=== PATIENT | male | born 1990 | race Caucasian/White ===

== ENCOUNTER 2017-01-03 05:13 | Emergency (ER) | payer OTHER ==
[~2017-01-03] VITALS: Ht 188 cm; Wt 85.0 kg
[~2017-01-03 05:13] MED LIST: LISI-360 PO; TRAM50 PO; ULTR50TA PO
--- NOTE | 2017-01-03 05:26 | PD ---
HPI Chief Complaint: psychiatric evaluation Time Seen by Provider: 05:23 Travel History International Travel<30 days: No Contact w/Intl Traveler<30days: No History of Present Illness HPI Patient comes in under police escort under a Damian act for reported suicidal statements. Patient denies any homicidal or suicidal ideations. Patient states he is just feeling depressed. Patient states that he does not normally drink, but did have a drink tonight. Patient denies any medical concerns at this time. Denies any chest pain, shortness breath, nausea, vomiting, abdominal pain, or fevers. Patient denies anything making his symptoms better or worse. Patient does have an external defibrillator and denies it firing. PFSH Past Medical History Cardiomyopathy: Yes Diminished Hearing: No Hypertension: Yes Social History Alcohol Use: No Tobacco Use: No Substance Use: No Allergies-Medications (Allergen,Severity, Reaction): Coded Allergies: No Known Allergies (Unverified , 01/03/17) Reported Meds & Prescriptions Reported Meds & Active Scripts Active Reported Simvastatin 40 Mg Tab 40 Mg PO HS Furosemide 20 Mg Tab 10 Mg PO DAILY Carvedilol 6.25 Mg Tab 6.25 Mg PO BID Lisinopril 10 mg (Lisinopril) 10 Mg Tab 10 Mg PO DAILY Review of Systems Except as stated in HPI: all other systems reviewed are Neg Physical Exam Narrative GENERAL: Well-developed, well nourished, in no acute distress, and non-ill appearing. SKIN: Focused skin assessment warm and dry. HEAD: Atraumatic. Normocephalic. EYES: Pupils equal and round. EOMI. No scleral icterus. No injection or drainage. ENT: No nasal bleeding or discharge. Mucous membranes pink and moist. NECK: Trachea midline. Supple. No nuclear rigidity. CARDIOVASCULAR: Regular rate and rhythm. No murmur appreciated. RESPIRATORY: No accessory muscle use. No respiratory distress. Clear to auscultation. Breath sounds equal bilaterally. MUSCULOSKELETAL: No obvious deformities. No clubbing. No cyanosis. No edema. Full range of motion. NEUROLOGICAL: Awake and alert. No obvious cranial nerve deficits. Motor grossly within normal limits. Normal speech. PSYCHIATRIC: Appropriate mood and affect; insight and judgment normal. Data Data Last Documented VS Vital Signs Date Time Temp Pulse Resp B/P Pulse Ox O2 Delivery O2 Flow Rate FiO2 01/03/17 05:31 20 01/03/17 05:31 98.4 82 129/91 100 Room Air Orders Complete Blood Count With Diff (01/03/17 05:22) Comprehensive Metabolic Panel (01/03/17 05:22) Psych Screen (01/03/17 05:22) Drug Screen, Random Urine (01/03/17 05:22) Alcohol (Ethanol) (01/03/17 05:22) Salicylates (Aspirin) (01/03/17 05:22) Tylenol (Acetaminophen) (01/03/17 05:22) Calcium Carbonate Chew (Tums Chew) (01/03/17 05:45) Acetaminophen (Tylenol) (01/03/17 06:00) Labs Laboratory Tests Test 01/03/17 02:55 White Blood Count 13.1 TH/MM3 Red Blood Count 4.80 MIL/MM3 Hemoglobin 14.4 GM/DL Hematocrit 41.4 % Mean Corpuscular Volume 86.1 FL Mean Corpuscular Hemoglobin 30.0 PG Mean Corpuscular Hemoglobin 34.8 % Concent Red Cell Distribution Width 14.2 % Platelet Count 151 TH/MM3 Mean Platelet Volume 10.4 FL Neutrophils (%) (Auto) 69.9 % Lymphocytes (%) (Auto) 23.7 % Monocytes (%) (Auto) 5.5 % Eosinophils (%) (Auto) 0.4 % Basophils (%) (Auto) 0.5 % Neutrophils # (Auto) 9.2 TH/MM3 Lymphocytes # (Auto) 3.1 TH/MM3 Monocytes # (Auto) 0.7 TH/MM3 Eosinophils # (Auto) 0.0 TH/MM3 Basophils # (Auto) 0.1 TH/MM3 CBC Comment DIFF FINAL Differential Comment Sodium Level 138 MEQ/L Potassium Level 4.1 MEQ/L Chloride Level 107 MEQ/L Carbon Dioxide Level 17.6 MEQ/L Anion Gap 13 MEQ/L Blood Urea Nitrogen 29 MG/DL Creatinine 2.07 MG/DL Estimat Glomerular Filtration 39 ML/MIN Rate Random Glucose 90 MG/DL Calcium Level 9.5 MG/DL Total Bilirubin 0.5 MG/DL Aspartate Amino Transf 23 U/L (AST/SGOT) Alanine Aminotransferase 22 U/L (ALT/SGPT) Alkaline Phosphatase 56 U/L Total Protein 8.9 GM/DL Albumin 4.5 GM/DL Salicylates Level LESS THAN 1.7 MG/DL Acetaminophen Level LESS THAN 2.0 MCG/ML Ethyl Alcohol Level 52 MG/DL MDM Medical Decision Making Medical Screen Exam Complete: Yes Emergency Medical Condition: Yes Differential Diagnosis Homicidal, suicidal, depression, alcohol intoxication, other Narrative Course Patient was seen and examined. Labs were obtained and reviewed with the exception of the urine drug screen that has not been collected yet. Patient denies any history of renal insufficiency. I discussed this patient with , feels patient can follow up with his elevated creatinine as an outpatient. I discussed this with the patient who verbalizes understanding. All questions were answered. Patient medically cleared for further treatment and evaluation by psych. Final disposition per psych. Diagnosis Primary Impression: Renal insufficiency Additional Impression: Medical clearance for psychiatric admission Additional Instructions: Follow-up with your primary care doctor, cranial, and/or contour sander regarding your renal insufficiency that was noted here today. Condition: Stable Ismael Drake Jan 03, 2017 05:26
[2017-01-03 05:31] VITALS: BP 129/91; PULSE 82; RESP 20; TEMP 98.4; O2SAT 100
[2017-01-03 05:39] LABS: AUTOMATED NEUTROPHIL # 9.2 TH/MM3 (1.8-7.7); BASOPHIL # 0.1 TH/MM3 (0-0.2); BASOPHIL % 0.5 % (0.0-2.0); EOSINOPHIL % 0.4 % (0.0-4.0); HEMATOCRIT 41.4 % (39.0-51.0); HEMO FLAGS DIFF FINAL; LYMPH % 23.7 % (9.0-44.0); LYMPHOCYTE # 3.1 TH/MM3 (1.0-4.8); MEAN CELL VOLUME 86.1 FL (80.0-100.0); MEAN CORPUSCULAR HGB CONC 34.8 % (32.0-36.0); MONO % 5.5 % (0.0-8.0); NEUT % 69.9 % (16.0-70.0); PLATELET COUNT 151 TH/MM3 (150-450); RED CELL DISTRIBUTION WIDTH 14.2 % (11.6-17.2); WHITE BLOOD COUNT 13.1 TH/MM3 (4.0-11.0)
[2017-01-03] MEDS ORDERED: CALCIUM CARBONATE 500 MG CHEWABLE TAB CHEW ONE (05:45)
[2017-01-03] MEDS ORDERED: SIMV40TA PO (05:58)
[2017-01-03] MEDS ORDERED: CARV6.252 PO (05:58)
[2017-01-03] MEDS ORDERED: FURO20TA PO (05:58)
[2017-01-03] MEDS ORDERED: ACETAMINOPHEN 500 MG CPLT PO ONE (06:00)
[2017-01-03 06:01] LABS: ALT (GPT) 22 U/L (12-78); ANION GAP 13 MEQ/L (5-15); AST (GOT) 23 U/L (15-37); BICARBONATE 17.6 MEQ/L (21.0-32.0); BLOOD UREA NITROGEN 29 MG/DL (7-18); CHLORIDE 107 MEQ/L (98-107); GLOMERULAR FILTRATION RATE 39 ML/MIN (>89); SODIUM (NA) 138 MEQ/L (136-145)
[2017-01-03 06:02] LABS: ALKALINE PHOSPHATASE 56 U/L (45-117); TOTAL BILIRUBIN ADULT 0.5 MG/DL (0.2-1.0)
[2017-01-03 06:14] LABS: POTASSIUM 4.1 MEQ/L (3.5-5.1)
[2017-01-03 06:38] LABS: ACETAMINOPHEN LESS THAN 2.0 MCG/ML (10.0-30.0)
[2017-01-03] MEDS ORDERED: FAMOTIDINE 20 MG TAB PO ONE (07:00)
[2017-01-03 07:36] LABS: AMPHETAMINE, URINE NEG (NEG); BARBITURATES, URINE NEG (NEG); COCAINE, URINE NEG (NEG)
[2017-01-03 08:31] VITALS: BP 158/88; PULSE 81; RESP 16; O2SAT 100
--- NOTE | 2017-01-03 12:29 | PD.PSY.CON ---
Provisional Diagnosis Admission Date Blakeslee I. Alcohol induced mood disorder, alcohol use disorder, history of depression Blakeslee II. Deferred Blakeslee III. 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 In his initial ER assessment Patient denies any homicidal or suicidal ideations. Patient states he is just feeling depressed. Patient states that he does not normally drink, but did have a drink tonight. Patient denies any medical concerns at this time. Denies any chest pain, shortness breath, nausea, vomiting, abdominal pain, or fevers. Patient denies anything making his symptoms better or worse. Patient does have an external defibrillator and denies it firing. Today on psychiatric evaluation patient reports good mood, he says that he has been chronically depressed due to his underlying medical problems, he also says that he has recently taken a medical leave in his job due to his medical problems, and he has not be producing money and has been facing financial issues. His mother yesterday became upset with him because he pawned a computer the was given to him by his father. His mother , contacted by phone, , stated that in her opinion the was of very poor judgment decision. She thought that he was maybe psychotic that was the reason she Damian acted him. But, patient says that he just needed the money, and he denies depressive symptoms at this moment, denies perceptual disturbances , denies suicidal and homicidal ideation. She also clarifies that his mother was drunk at the moment of initiating the Damian act. Patient reports occasional use of alcohol, denies the use of illicit drugs. Review of Systems Constitutional: DENIES: Diaphoretic episodes, Fatigue, Fever, Weight gain, Weight loss, Chills, Dizziness, Change in appetite, Night Sweats Endocrine: DENIES: Heat/cold intolerance, Polydipsia, Polyuria, Polyphagia Eyes: DENIES: Blurred vision, Diplopia, Eye inflammation, Eye pain, Vision loss , Photosensitivity, Double Vision Ears, nose, mouth, throat: DENIES: Tinnitus, Hearing loss, Vertigo, Nasal discharge, Oral lesions, Throat pain, Hoarseness, Ear Pain, Running Nose, Epistaxis, Sinus Pain, Toothache, Odynophagia Respiratory: DENIES: Apneas, Cough, Snoring, Wheezing, Hemoptysis, Sputum production, Shortness of breath Cardiovascular: DENIES: Chest pain, Palpitations, Syncope, Dyspnea on Exertion , PND, Lower Extremity Edema, Orthopnea, Claudication Musculoskeletal: DENIES: Joint pain, Muscle aches, Stiffness, Joint Swelling, Back pain, Neck pain Integumentary: DENIES: Abnormal pigmentation, Nail changes, Pruritus, Rash Hematologic/lymphatic: DENIES: Bruising, Lymphadenopathy Immunologic/allergic: DENIES: Eczema, Urticaria Neurologic: DENIES: Abnormal gait, Headache, Localized weakness, Paresthesias, Seizures, Speech Problems, Tremor, Poor Balance Psychiatric: DENIES: Anxiety, Confusion, Mood changes, Depression, Hallucinations, Agitation, Suicidal Ideation, Homicidal Ideation, Delusions Past Family Social History Coded Allergies: No Known Allergies (Unverified , 01/03/17) Reported Medications Simvastatin 40 Mg Tab40 Mg PO HS #30 TAB Ref 0 01/03/17 Furosemide 20 Mg Tab10 Mg PO DAILY #60 TAB Ref 0 01/03/17 Carvedilol 6.25 Mg Tab6.25 Mg PO BID #60 TAB Ref 0 01/03/17 Lisinopril 10 mg 10 Mg Tab10 Mg PO DAILY 09/21/13 Discontinued Reported Medications Tramadol HCl (Ultram)50 Mg Tab50 Mg PO Q4H PRN 09/21/13 Discontinued Scripts Tramadol Hcl (Ultram)50 Mg Tab1 Tab PO Q6 PRN (PAIN) #30 FOR PAIN Prov:Yo Jackson MD 09/21/13 Family History He denies family psychiatric history Social History Patient was born and raised in [place], ,lives in [place] with parents, 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 2) Verbal communication Physical Exam Vital Signs Vital Signs Date Time Temp Pulse Resp B/P Pulse Ox O2 Delivery O2 Flow Rate FiO2 01/03/17 08:31 81 16 158/88 100 Room Air 01/03/17 05:31 98.4 Lab Results Labs Laboratory Tests Test 01/03/17 02:55 White Blood Count 13.1 TH/MM3 Red Blood Count 4.80 MIL/MM3 Hemoglobin 14.4 GM/DL Hematocrit 41.4 % Mean Corpuscular Volume 86.1 FL Mean Corpuscular Hemoglobin 30.0 PG Mean Corpuscular Hemoglobin 34.8 % Concent Red Cell Distribution Width 14.2 % Platelet Count 151 TH/MM3 Mean Platelet Volume 10.4 FL Neutrophils (%) (Auto) 69.9 % Lymphocytes (%) (Auto) 23.7 % Monocytes (%) (Auto) 5.5 % Eosinophils (%) (Auto) 0.4 % Basophils (%) (Auto) 0.5 % Neutrophils # (Auto) 9.2 TH/MM3 Lymphocytes # (Auto) 3.1 TH/MM3 Monocytes # (Auto) 0.7 TH/MM3 Eosinophils # (Auto) 0.0 TH/MM3 Basophils # (Auto) 0.1 TH/MM3 CBC Comment DIFF FINAL Differential Comment Sodium Level 138 MEQ/L Potassium Level 4.1 MEQ/L Chloride Level 107 MEQ/L Carbon Dioxide Level 17.6 MEQ/L Anion Gap 13 MEQ/L Blood Urea Nitrogen 29 MG/DL Creatinine 2.07 MG/DL Estimat Glomerular Filtration 39 ML/MIN Rate Random Glucose 90 MG/DL Calcium Level 9.5 MG/DL Total Bilirubin 0.5 MG/DL Aspartate Amino Transf 23 U/L (AST/SGOT) Alanine Aminotransferase 22 U/L (ALT/SGPT) Alkaline Phosphatase 56 U/L Total Protein 8.9 GM/DL Albumin 4.5 GM/DL Salicylates Level LESS THAN 1.7 MG/DL Acetaminophen Level LESS THAN 2.0 MCG/ML Ethyl Alcohol Level 52 MG/DL Mental Status Examination Speech: Unremarkable Orientation: x3 Memory: Unremarkable Thought Process: Logical Thought Content: Unremarkable Hallucination Type: None Suicidal Ideation: No Previous Suicide Attempts: No Homicidal Ideation: No Previous Homicide Attempts: No Insight: Good Judgment: WNL Affect: Good Mood: Appropriate Motor Activity: Normal gait Assessment & Plan Problem List: (1) Alcohol abuse with alcohol-induced mood disorder Assessment & Plan: At the moment of this evaluation the patient does not present any evidence of acute depression, anxiety, gómez or psychosis. She denies suicidal or homicidal ideation, patient denies visual and auditory hallucinations. Recent suicidal statement to his mother is to be related with acute alcohol intoxication. Patient does not meet criteria for psychiatric admission at this moment. Damian act will be lifted. ICD Code: F10.14 Assessment & Plan Estimated LOS: Esteban Mcgarry MD Jan 03, 2017 12:29
== END 2017-01-03 19:50 | disposition home or self-care (01) ==
LOC: NEPD 05:13
DX: N28.9 Disorder of kidney and ureter, unspecified (principal); I42.9 Cardiomyopathy, unspecified; I10 Essential (primary) hypertension; Z79.899 Other long term (current) drug therapy
CPT/HCPCS: 80053; 80307; 85025; 99283

== ENCOUNTER 2017-02-03 12:28 | Day surgery (SDC) | payer SELFPAY ==
[~2017-02-03] VITALS: Ht 188 cm; Wt 77.5 kg
[~2017-02-03 12:28] MED LIST changes: +CARV6.252 PO; +FURO20TA PO; +SIMV40TA PO; -TRAM50 PO; -ULTR50TA PO
[2017-02-03] MEDS ORDERED: PROPOFOL 200 MG/20 ML AMP OTHER ONE (12:29)
[2017-02-03 14:28] LABS: BASOPHIL % 0.6 % (0.0-2.0); EOSINOPHIL # 0.1 TH/MM3 (0-0.4); EOSINOPHIL % 1.4 % (0.0-4.0); HEMATOCRIT 38.8 % (39.0-51.0); HEMO FLAGS DIFF FINAL; LYMPHOCYTE # 2.3 TH/MM3 (1.0-4.8); MEAN CELL VOLUME 88.7 FL (80.0-100.0); MEAN CORPUSCULAR HEMOGLOBIN 30.7 PG (27.0-34.0); MEAN CORPUSCULAR HGB CONC 34.7 % (32.0-36.0); MONO % 7.8 % (0.0-8.0); NEUT % 61.2 % (16.0-70.0); PLATELET COUNT 145 TH/MM3 (150-450); RED BLOOD COUNT 4.38 MIL/MM3 (4.50-5.90); RED CELL DISTRIBUTION WIDTH 14.1 % (11.6-17.2); WHITE BLOOD COUNT 8.1 TH/MM3 (4.0-11.0)
[2017-02-03] MEDS ORDERED: SODIUM CHLORID 0.9% 500 ML IV PRN (14:30)
[2017-02-03] MEDS ORDERED: POVIDONE IODINE 5% (ANTISEPSIS KIT) 4 APPLICATIONS EACH NARE SCH (14:30)
[2017-02-03] MEDS ORDERED: NS 1000 ML IV SCH (14:30)
[2017-02-03] MEDS ORDERED: MUPIROCIN 2% OINT 1 APPLIC/GM SYR NASAL SCH (14:30)
[2017-02-03] MEDS ORDERED: CHLORHEXIDINE GLUCONATE 2 % 1 PACK (2 CLOTHS) TOPICAL SCH (14:30)
[2017-02-03] MEDS ORDERED: VANCOMYCIN 1000 MG/NS 250 ML IV SCH ×2 (14:30)
[2017-02-03] MEDS ORDERED: LACTATED RINGER'S 1000 ML IV PRN (14:30)
[2017-02-03] MEDS ORDERED: METOPROLOL TARTRATE 25 MG TAB PO PRN (14:30)
[2017-02-03] MEDS ORDERED: INSULIN HUMAN REGULAR 1,000 UNITS/10 ML VIAL SQ PRN (14:30)
[2017-02-03] MEDS ORDERED: POVIDONE IODINE 5% (ANTISEPSIS KIT) 4 APPLICATIONS EACH NARE PRN (14:30)
[2017-02-03] MEDS ORDERED: CHLORHEXIDINE GLUCONATE 2 % 1 PACK (2 CLOTHS) TOPICAL PRN (14:30)
[2017-02-03] MEDS ORDERED: ceFAZolin 2 GM PREMIX 50 ML IV SCH (14:30)
[2017-02-03] MEDS ORDERED: LORazepam 1 MG TAB SL SCH (14:30)
[2017-02-03 14:42] LABS: PROTHROMBIN TIME - PATIENT 10.8 SEC (9.8-11.6)
[2017-02-03 14:54] LABS: BICARBONATE 26.8 MEQ/L (21.0-32.0); POTASSIUM 4.3 MEQ/L (3.5-5.1)
[2017-02-03 15:22] VITALS: BP 141/85; PULSE 62; RESP 18; TEMP 98.1; O2SAT 99
[2017-02-03] MEDS ORDERED: LIDOCAINE HCL 2% 50 ML VIAL ONE (18:06)
[2017-02-03] MEDS ORDERED: VANCOMYCIN 500 MG VIAL ONE (18:07)
[2017-02-03] MEDS ORDERED: STERILE WATER FOR INJECTION 10 ML VIAL ONE (18:08)
[2017-02-03] MEDS ORDERED: MIDAZOLAM HCL 2 MG/2 ML VIAL ONE (18:11)
[2017-02-03] MEDS ORDERED: KETAMINE HCL 500 MG/5 ML VIAL ONE (18:11)
--- NOTE | 2017-02-03 19:01 | PD.CARD ---
SINGLE CHAMBER DEFIB IMPLANT PROCEDURE DATE: Feb 03, 2017 NYHA Classification: Class II (Mild) Prevention: Primary Single Chamber Defib Implant PROCEDURE: Single chamber defibrillator implantation and device testing. INDICATIONS: Mr. Egan is a 26 -year-old male with hx of congestive heart failure, ejection fraction 30%, who undergo defibrillator implantation for sudden primary prevention.patient was on optimal medical management for the last 6 months. The risks, the nature and the benefit of the procedure are clearly stated to him . Risks include pneumothorax, cardiac perforation, stroke and even . He understood and agreed to proceed. PROCEDURE: After written, informed consent was obtained, the patient was brought to the EP Lab where he was prepped and draped in the sterile fashion. Conscious sedation was initiated and maintained throughout the procedure by anesthesiologist. Once sedation was verified, the left infraclavicular area was anesthetized with 2% Xylocaine. Using modified Seldinger technique, the left subclavian vein was cannulated on one occasion and one guide wire was advanced. Then, using #11 blade scalpel, a 3-cm incision was made two fingerbreadths below left clavicle. This incision was then taken down to the deep fascial layer using Bovie cautery and blunt dissection. Into the inferomedial direction, a device pocket was dissected, then the wire was dissected into the pocket. A 2-0 Vicryl suture was placed around the wires to prevent bleeding. At this point, over the wire, the 8- Gabonese dilator and introducer was advanced. As dilator and wire were removed, an active fixation right ventricular pacing, sensing and defibrillatory lead was advanced. After adequate pacing and sensing thresholds were obtained, the lead was secured in the pocket with #2 Ethibond suture. At that point, the pocket was copiously irrigated with antibiotic solution. The leads were connected to the generator and placed into the pocket. I did proceed with wound closure. The deep fascial layer was approximated with 2-0 Vicryl suture in a continuous fashion. The subcutaneous layer was approximated with 2-0 Vicryl suture in a continuous fashion. The subcuticular layer was approximated with 2-0 Vicryl suture in a continuous fashion. Dermabond adhesive was applied to the wound, followed by a sterile pressure dressing. There was no complication. The patient tolerated procedure. Blood loss minimal. 1. Implanted Hardware: The implanted defibrillator generator is a [employer] model number 552572, serial number [id number]. The right ventricular pacing, sensing and defibrillatory lead is a [employer] model number 438657, serial number [id number]. 2. Thresholds: The right ventricular pacing threshold in the bipolar mode was 0.8volts at 0.4 milliseconds, lead impedance 680 ohms and R-wave at 13.8 mV. P wave 2.9mV. 3. Settings: The device set in VVI40 defibrillatory portion for two zones, one zone for ventricular tachycardia between 180 and 250 beats per minute. Initial therapy consists of one burst of ATP, one ramp, 81%, 10 pulse, 10 millisecond decremental, followed by 20, then 30 and all subsequent shocks at 40 joules defibrillatory shock, the second zone for ventricular fibrillation above 250 beats per minute, first therapy at 30 and all subsequent shocks at 40 joules defibrillatory shock. CONCLUSIONS: Successful defibrillator implantation. COMMENT AND RECOMMENDATIONS: The patient will be transferred to the telemetry unit, will be observed and when stable can be discharged home. Awilda Marion MD Feb 03, 2017 19:01
[2017-02-03] MEDS ORDERED: ONDANSETRON HCL 4 MG/2 ML VIAL IV PRN (19:15)
[2017-02-03] MEDS ORDERED: MAGNESIUM HYDROXIDE SUSP 30 ML CUP PO PRN (19:15)
[2017-02-03] MEDS ORDERED: TEMAZEPAM 15 MG CAP PO PRN (19:15)
[2017-02-03] MEDS ORDERED: ACETAMINOPHEN/CODEINE 300 MG/30 MG TAB PO PRN ×2 (19:15)
--- NOTE | 2017-02-03 19:38 | CATHPROC ---
[employer] HIS Report Study Information Study Number Admission Scheduled Start Study Start [id number] Feb 03 2017 12:28PM 02/03/2017 Feb 03 2017 5:46PM [place] [facility] Cardiac Pacer/ICD Admit Source Facility Department Other [facility] - Associate Financial Representative Physician and Clinical Staff Initial Awilda Jensen Leather Dresser Alana Melchor,SHIP RIGGER TECH2 Other Josefina Lynn,RN Other Anesthesia, SANDSTONE SPLITTER Recorder Ruth Denson,BSRN Recorder Josefina Lynn,ALAYNA Scrub Katina Perez RCIS Procedures Performed Procedure Lead Insertion Equipment Time Import/Export Administrator Description Size Mfg Part Number Used/Scraped DEFIBRILLATOR, IMPERIA 7 VR-T 18:44 BIOTRONIK [id number] Used DX MRI 18:34 BIOTRONIK LEAD, PLEXA PRO-MRI DF 65/15 [id number] Used DERMABOND, ADHESIVE SKIN [id number] 17:49 CORDIS/PACER * Used GLUE MINI *[id number] TP-1103 17:49 MEDLINE IND[employer] SUTURE, STRIP PLUS 1/2" * Used *[id number] 17:49 MEDLINE PACER STALEY, LIMB * 2530 *[id number] Used [id number] 17:49 MEDLINE PACER PACK, PACER CUSTOM * Used *[id number] 18:27 [facility] [employer] PACER SAFE SHEATH, FR8, 13CM FR 8 [id number] Used 18:20 Needle Sponge Count 2 22 Used 18:20 Needle Sponge Count 2 2 Used 18:20 Needle Sponge Count 20 200 Used SUTURE, 0 ETHIBOND [CT1] (CX21D), 8pk SUTURE, 2-0 VICRYL [CT1] ([id number]) SUTURE, 2-0 VICRYL [CT1] ([id number]) [id number] 17:49 [place] [facility],WARM AIR CCL * Used *[id number] [facility] PAD, ELECTROSURGICAL 17:49 * [id number] *[id number] Used SURGICAL GROUNDING ORANGE [id number] 17:49 [employer] LAURY. ELECTRODE, PRO-PADZ BIPHASIC * Used *02059 Equipment Model, Serial, Lot Number and Expiration Data Description Model Number Serial Number Lot Number Expiration Date DEFIBRILLATOR, IMPERIA 7 VR-T [id number] 08-16-2017 DX MRI LEAD, PLEXA PRO-MRI DF 65/15 [id number] 05-18-2017 History: Current Medications Medication Dosage/Unit Route Frequency Last Date/Time Taken Beta Linus Statins (any) History: Allergies Allergy Reaction NKDA History: Risk Factors Family History of Hypertension Dyslipidemia Previous IL Premature CAD Yes Yes No No Prior Valve Prior PCI Prior CABG Surgery No No No Cerebrovascular Peripheral Artery Chronic Lung On Dialysis Diabetes Disease Disease Disease No No No No No History: CV Disease Selection Items Cardiomyopathy History: Other Disease Selection Items HTN Labs Hgb (g/dl) Hct (%) RBC (MIL/MM3) WBC (l/cumm) Platelets (thousands) 11.60-17.00 35.00-51.00 4.00-5.90 4.00-11.00 150.00-450.00 13.5 38.8 4.3 8.1 145 Glucose (mg/dl) BUN (mg/dl) Creatinine (mg/dl) BUN:Creatinine (1:x) 74.00-106.00 7.00-18.00 0.50-1.30 10.00-20.00 44 33 1.8 18.3 Na (meq/l) K (meq/l) Cl (meq/l) CO2 (mmol/L) Ca (mg/dl) 136.00-145.00 3.50-5.10 98.00-107.00 21.00-32.00 8.50-10.10 138 4.3 106 26.8 9 INR (PTT:PT) 0.90-1.10 1 Medication Medication Total Dose (Bolus/Oral) Medication Total Dosage/Unit 2% XYLOCAINE 50 mL Medications (Bolus/Oral) Medication Time Given Dosage/Unit Administered By Reason 2% XYLOCAINE 02/03/2017 6:28:16 PM 50 mL Awilda Marion For pain 50 mL 2% XYLOCAINE given in lab by Awilda Marion via Subcutaneous. Ordered by Awilda Marion. Reason: For pain. left upper chest Medication (Drip) Medication Time Given Dosage/Unit Concentration/Unit Diluent (ml) Solution ANCEF 02/03/2017 6:00:00 PM 2 g 2 g ANCEF given in lab by Anesthesia, SANDSTONE SPLITTER in Right Antecubital via Peripheral IV. Ordered by Awilda Marion. Reason: As per physicians verbal order. IV Solutions 02/03/2017 6:10:00 PM 0 mL (IV) NaCl .9 IV Solutions given in lab by Ruth Denson BSRN in Right Antecubital via Peripheral IV. Pump/Drip Flow = 50 ml/hr using NaCl .9. Ordered by Awilda Marion. Reason: As per physicians verbal order. IV Solutions 02/03/2017 6:12:00 PM 0 mL (IV) NaCl .9 IV Solutions given in lab by Ruth Denson BSRN in Left Forearm via Peripheral IV. Pump/Drip Flow = 50 ml/hr using NaCl .9. Ordered by Awilda Marion. VANCOMYCIN DRIP 02/03/2017 5:54:00 PM 1 g 1 g VANCOMYCIN DRIP given in lab by uRth Denson BSRN in Right Antecubital via Peripheral IV. Or dered by Awilda Marion. Reason: As per physicians verbal order. Initial Case Assessment Cardiovascular HR NIBP Chest Pain 63 140/67 0 Edema Present Skin color Skin None Normal Warm Dry Neurological State Oriented to time-place- Alert Moves all extremities person Respiration - General Respiration Rate SpO2 (%) (B/min) 16 100 Final Case Assessment Cardiovascular HR Rhythm NIBP Chest Pain 75 sr 101/50 0 Edema Present Skin color Skin None Normal Warm Dry Circulatory - Right Pulses Radial 2 Scale (0,1,2,3,4,d) Circulatory - Left Pulses Radial 2 Scale (0,1,2,3,4,d) Circulatory - Lower Extremities Color Lower Right Color Lower Left Normal Normal Neurological State Lethargic Moves all extremities Respiration - General Respiration Rate SpO2 (%) O2 (lpm) (B/min) 16 99 4 Chronological Log Time Study Chronological Log 17:53:00 Patient arrived via Bed. 1 g VANCOMYCIN DRIP given in lab by Ruth Denson BSRN in Right Antecubital via Peripheral IV. Ordered by Sanam, 17:54:00 Awilda. Reason: As per physicians verbal order. 17:57:14 Patient Name, D.O.B, / Armband Verified By R.N. 18:00:00 Anesthesia at bedside. Assumes care of patient. Glenda SANDSTONE SPLITTER 2 g ANCEF given in lab by Anesthesia, SANDSTONE SPLITTER in Right Antecubital via Peripheral IV. Ordered by Awilda Gibbons. Reason: 18:00:00 As per physicians verbal order. IV Solutions given in lab by Ruth Denson BSRN in Right Antecubital via Peripheral IV. Pum p/Drip Flow = 50 ml/hr 18:10:00 using NaCl .9. Ordered by Awilda Marion. Reason: As per physicians verbal order. 18:11:01 Consent signed by the physician and the patient and verified by the Associate Financial Representative staff. 18:11:02 Pre-op and post- op instructions given; patient acknowledges understanding of instructions. 18:11:04 Verbal Stimulation=2 Physical Stimulation=2 Airway=2 Respiration=2 TOTAL=10. (0=absent, 1=l imited, 2=present) 18:11:32 Presedation assessment performed by Associate Financial Representative RN. 18:11:35 Immediate Presedation assesment performed by physician. 18:11:37 Patient has been NPO for More than 6Hrs. 18:11:39 Skin Breakdown- none 18:11:46 Patient Warmer Placed on the Table. 18:11:49 Disposable Defibrillator Pads Placed On Patient. 18:11:51 Sasha Prominences Protected 18:11:53 A # 20 IV was noted in the Antecubital (right). Grade = ~GRADE~ IV Solutions given in lab by Ruth Denson BSRN in Left Forearm via Peripheral IV. Pump/Dri p Flow = 50 ml/hr using 18:12:00 NaCl .9. Ordered by Awilda Marion. 18:12:04 A # 20 IV was noted in the Forearm (left). Grade = ~GRADE~ 18:12:17 History and physical on the chart or being dictated. Assessment: Initial Case, HR=63 BPM, UXEE=151/67 mmhg, Chest Pain=0, Edema=None, Color=Normal, Skin = Warm, Dry 18:12:19 Neurological: State=Alert, Ox3, PORTER Respiration: Resp=16 B/min, FmF3=723 % 18:12:29 Table restraints applied according to hospital policy 18:12:32 Left Upper Chest Prepped Times Two. 18:13:48 Bovie ground pad applied to: right hip 18:13:55 2% CHLORHEXIDINE GLUCONATE WASH AND NASAL SWIPE DONE PRIOR TO PROCEDURE. 18:13:58 Pre-procedure assessment data was performed with the previous procedure. First Sponge And Instrument Count Done by Alana Melchor, SHIP RIGGER TECH2. 18:19:26 Hypo's: 2, Sponges: 20, Bovie/scratch: 2 Sutures: 10, Blades: 1, Instruments: 26, Syveck Patches: 0 18:21:56 Reference ECG taken 18:22:01 Immediate Presedation assesment performed by physician. 18:23:43 MD paged Time Out. Correct patient, procedure, procedure equipment, site and side verified with physicia n present. Time 18:27:40 concurred by MD, individual staff and SANDSTONE SPLITTER. Time Out #2 - Consents verified, patient in correct position, all results are labled and displa yed, safety precautions 18:28:12 taken, antibiotics administered. Time out concurred by MD, individual staff and SANDSTONE SPLITTER in procedu re 18:28:14 Case Start 50 mL 2% XYLOCAINE given in lab by Awilda Marion via Subcutaneous. Ordered by Awilda Marion. Re ason: For pain. 18:28:16 left upper chest 18:31:14 Vascular access was obtained in the Subclav. Vein (Lft. 18:31:26 Surgical Incision Made. 18:31:30 A pocket was created at the Lt. upper chest. 18:36:18 A LEAD, PLEXA PRO-MRI DF 65/15 was inserted and positioned in the RV. 18:36:51 Lead placement verified under fluoroscopy 18:36:54 The RV lead impedance and threshold being tested. 18:42:06 Pocket flushed with antibiotic solution 18:43:35 A DEFIBRILLATOR, IMPERIA 7 VR-T DX MRI was connected and placed in the pocket. Second Sponge And Instrument Count Done by Katina Perez RCIS. 18:50:49 Hypo's: 2, Sponges: 20, Bovie/scratch: 2 Sutures: 10, Blades: 1, Instruments: ~INSTRU~, Syveck Patches: ~SYVECK PATCH~ 18:58:29 The pocket was closed. Final Sponge And Instrument Count Done by Alana Melchor, SHIP RIGGER TECH2. 18:58:39 Hypo's: 2, Sponges: 20, Bovie/scratch: 2 Sutures: 10, Blades: 1, Instruments: 26, Syveck Patches: 0 18:59:05 Implant Procedure was performed. 18:59:10 A ICD Implant . (Single) 18:59:19 Case End 18:59:36 Steri-strips and a sterile dressing applied to site. 18:59:59 No case complications noted. 19:00:00 Cine recording checked. 19:00:06 Defibrillator and ground pads removed. Skin intact. Assessment: Final Case, HR=75 BPM, Rhythm=sr, KXDE=183/50 mmhg, Chest Pain=0, Edema=None, [place] r=Normal, Skin = Warm, Dry Right Pulses: Radial=2 Left Pulses: Radial=2 19:00:52 Lower Right Extremities: Color=Normal Lower Left Extremities: Color=Normal Neurological: State=Lethargic, PORTER Respiration: Resp=16 B/min, SpO2=99 %, O2=4 lpm 19:02:36 CICU called. Spoke to Ella 19:02:41 Bedside Report will be given. 19:10:36 Patient moved to stretcher 19:15:45 A sling was placed on the affected arm. 19:18:30 Implantable Device card placed in patient's chart. End Study - Contrast Media Used In Study Contrast Total Opened (mL) Total Used (mL) Total Wasted (mL) Unspecified 0 0 0 End Study - Maximum Contrast Load Max Contrast Load (mL) 246.2 End Study - Radiation Exposure Fluoro Time (minutes) 2.2 End Study - Patient Disposition Complications Transferred To Interventional Outcome No Telemetry Bed successful
[2017-02-03] MEDS ORDERED: MORPHINE SULFATE 4 MG/ML INJ IV ONE ×2 (19:45→21:00)
[2017-02-03] MEDS ORDERED: PILL SPLITTER OTHER PRN (19:45)
[2017-02-03] MEDS: CARVEDILOL 6.25 MG TAB PO SCH (19:51)
--- NOTE | 2017-02-03 19:56 | RADRPT ---
EXAM DATE/TIME: 02/03/2017 19:29 [place] COMPARISON: No previous studies available for comparison. INDICATIONS : S/P ICD placement. MEDICAL HISTORY : None. SURGICAL HISTORY : None. ENCOUNTER: Initial ACUITY: 1 day PAIN SCORE: 0/10 LOCATION: Bilateral chest FINDINGS: Cardiac pacer/defibrillator seen on the left. Single lead, appears intact and tip at the right ventri cular apex. No pneumothorax. The lungs are clear. CONCLUSION: Left-sided pacer/defibrillator placed. No evidence of acute complication. Min Esteves MD on February 03, 2017 at 19:53 Board Certified Radiologist. This report was verified electronically.
[2017-02-03] MEDS: ACETAMINOPHEN/HYDROcodone 325 MG/10 MG TAB PO PRN (19:58)
[2017-02-03 20:00] VITALS: BP 142/102; PULSE 60; RESP 18; TEMP 98.1; O2SAT 99
[2017-02-03] MEDS ORDERED: DO NOT ADM ANY ANTICOAGULANT DRUGS PRN (20:00)
[2017-02-03 21:00] VITALS: PULSE 72
[2017-02-03] MEDS ORDERED: PRAVASTATIN SOD 80 MG TAB PO SCH (21:00)
[2017-02-03 22:00] VITALS: PULSE 68
[2017-02-03 23:00] VITALS: PULSE 74
[2017-02-04] VITALS (10 sets, daily range): BP systolic 127–153; BP diastolic 79–92; PULSE 66–97; RESP 18–20; TEMP 98.1–98.4; O2SAT 98–100
[2017-02-04] MEDS: ceFAZolin 2 GM PREMIX 50 ML IV SCH ×2 (02:06→08:32)
[2017-02-04] MEDS: ACETAMINOPHEN/HYDROcodone 325 MG/10 MG TAB PO PRN ×2 (02:07→08:31)
[2017-02-04] MEDS: CARVEDILOL 6.25 MG TAB PO SCH (08:32)
--- NOTE | 2017-02-04 08:59 | PD.CARD.PN ---
Subjective Subjective Remarks Pt feels well, no complaints Objective Medications Administered Medications Medications (Trade) Dose Ordered Sig/Cordelia Route PRN Reason Start Time Stop Time Status Last Admin Dose Admin Cefazolin Sodium/ Dextrose (Ancef 2 Gm Premix) 50 ml @ 100 mls/hr Q8H IV 02/04/17 02:00 02/04/17 18:29 02/04/17 08:32 Temazepam (Restoril) 15 mg HS PRN PO SLEEP 02/03/17 19:15 02/03/17 19:50 Carvedilol (Coreg) 6.25 mg BID PO 02/03/17 21:00 02/04/17 08:32 Furosemide (Lasix) 10 mg DAILY PO 02/04/17 09:00 02/04/17 08:32 Lisinopril (Prinivil) 10 mg DAILY PO 02/04/17 09:00 02/04/17 08:32 Pravastatin Sodium (Pravachol) 80 mg HS PO CM 02/03/17 21:00 02/03/17 19:50 Acetaminophen/ Hydrocodone Bitart ([place] 10-325 Mg) 1 tab Q6H PRN PO PAIN SCALE 1 TO 10 02/03/17 19:45 02/04/17 08:31 Vital Signs / I&O Vital Signs Date Time Temp Pulse Resp B/P Pulse Ox O2 Delivery O2 Flow Rate FiO2 02/04/17 07:01 66 02/04/17 06:00 79 02/04/17 05:00 81 02/04/17 04:00 86 02/04/17 04:00 98.1 86 20 142/87 99 02/04/17 03:00 75 02/04/17 02:00 68 02/04/17 01:00 78 02/04/17 00:00 98.4 77 20 127/81 98 02/04/17 00:00 77 02/03/17 23:00 74 02/03/17 22:00 68 02/03/17 21:00 72 02/03/17 20:00 60 02/03/17 20:00 98.1 60 18 142/102 99 02/03/17 15:22 98.1 62 18 141/85 99 I/O 02/03/17 02/03/17 02/03/17 02/04/17 02/04/17 02/04/17 07:00 15:00 23:00 07:00 15:00 23:00 Intake Total 1200 ml Output Total 800 ml Balance 400 ml Intake Oral 1000 ml IV Total 200 ml Output Urine Total 800 ml # Bowel Movements 1 Physical Exam GENERAL: This is a well-nourished, well-developed patient, in no apparent distress. CARDIOVASCULAR: Regular rate and rhythm without murmurs, gallops, or rubs. RESPIRATORY: Clear to auscultation. Breath sounds equal bilaterally. No wheezes , rales, or rhonchi. GASTROINTESTINAL: Abdomen soft, non-tender, nondistended. Normal active bowel sounds MUSCULOSKELETAL: Extremities without clubbing, cyanosis, or edema. NEURO: Alert & Oriented x4 to person, place, time, situation. Moves all ext x4 Laboratory Laboratory Tests Test 02/03/17 13:55 White Blood Count 8.1 TH/MM3 Red Blood Count 4.38 MIL/MM3 Hemoglobin 13.5 GM/DL Hematocrit 38.8 % Mean Corpuscular Volume 88.7 FL Mean Corpuscular Hemoglobin 30.7 PG Mean Corpuscular Hemoglobin 34.7 % Concent Red Cell Distribution Width 14.1 % Platelet Count 145 TH/MM3 Mean Platelet Volume 10.8 FL Neutrophils (%) (Auto) 61.2 % Lymphocytes (%) (Auto) 29.0 % Monocytes (%) (Auto) 7.8 % Eosinophils (%) (Auto) 1.4 % Basophils (%) (Auto) 0.6 % Neutrophils # (Auto) 5.0 TH/MM3 Lymphocytes # (Auto) 2.3 TH/MM3 Monocytes # (Auto) 0.6 TH/MM3 Eosinophils # (Auto) 0.1 TH/MM3 Basophils # (Auto) 0.0 TH/MM3 CBC Comment DIFF FINAL Differential Comment Prothrombin Time 10.8 SEC Prothromb Time International 1.0 RATIO Ratio Activated Partial 28.0 SEC Thromboplast Time Sodium Level 138 MEQ/L Potassium Level 4.3 MEQ/L Chloride Level 106 MEQ/L Carbon Dioxide Level 26.8 MEQ/L Anion Gap 5 MEQ/L Blood Urea Nitrogen 33 MG/DL Creatinine 1.87 MG/DL Estimat Glomerular Filtration 44 ML/MIN Rate Random Glucose 79 MG/DL Calcium Level 9.0 MG/DL Blood Type A POSITIVE Antibody Screen NEGATIVE Blood Bank Comment Imaging Last Impressions Chest X-Ray 02/03/17 0000 Signed Impressions: Service Date/Time: Friday, February 03, 2017 19:29 - CONCLUSION: Left-sided pacer/defibrillator placed. No evidence of acute complication. Min Esteves MD Assessment and Plan Assessment and Plan s/p ICD, working well, no ptx on cxr, ok to d/c, will f/u with Jamaal Hung MD Feb 04, 2017 08:59
[2017-02-04] MEDS ORDERED: LISINOPRIL 10 MG TAB PO SCH (09:00)
[2017-02-04] MEDS ORDERED: FUROSEMIDE 20 MG TAB PO SCH (09:00)
--- NOTE | 2017-02-04 15:18 | EKG ---
Date Performed: 02/03/2017 Time Performed: 13:41:26 PTAGE: 26 years EKG: Sinus arrhythmia Within normal limts for age Borderline ECG NO PREVIOUS TRACING DOCTOR: Clifford Crum Interpretating Date/Time 02/04/2017 15:17:51
--- NOTE | 2017-02-04 15:19 | EKG ---
Date Performed: 02/03/2017 Time Performed: 23:13:20 PTAGE: 26 years EKG: Sinus rhythm Within normal limits Compared to prior tracing, sinus arrhythmia is no longer present Abnormal ECG PREVIOUS TRACING : 02/03/2017 13.41 DOCTOR: Clifford Crum Interpretating Date/Time 02/04/2017 15:18:28
== END 2017-02-04 12:20 | disposition home or self-care (01) ==
LOC: HDOC 12:28 → HDIC 12:30 → HCIS 19:19 → HDOC 02-04 12:20
PROVIDERS: ATTEND Internal Medicine Interventional Cardiology
DX: I11.0 Hypertensive heart disease with heart failure (principal); I50.22 Chronic systolic (congestive) heart failure; I42.9 Cardiomyopathy, unspecified; R06.02 Shortness of breath
CPT/HCPCS: 00530; 33249; 71010; 80048; 85025; 85610; 85730; 86850; 86900; 86901; 93005; C1722; C1777; J0690; J2250; J2270; J3010; J3370; J7050